=== PATIENT | male | born 1975 | race Two or more races ===

== ENCOUNTER 2025-01-24 20:17 | Emergency (ER) | payer SELFPAY ==
--- NOTE | 2025-01-24 20:20 | EKG_ITS ---
[facility] Test Date: 2025-01-24 Pat Name: ERICKA RONQUILLO Department: Room: - Gender: Male Unarmed Security Guard: : 1975 Requested By: ED Temporary Provider Order Number: [id number] Reading MD: ED Temporary Provider Measurements Intervals [place] Rate: 74 P: 52 CO: 156 QRS: 77 QRSD: 118 T: 84 QT: 352 QTc: 392 Interpretive Statements SINUS RHYTHM MODERATE INTRAVENTRICULAR CONDUCTION DELAY [110+ ms QRS DURATION] MARKED ST ELEVATION, CONSIDER ANTERIOR INJURY [MARKED ST ELEVATION W/O NORMALLY INFLECTED T-WAVE IN V2-V5] MARKED ST ELEVATION, CONSIDER INFERIOR INJURY [MARKED ST ELEVATION W/O NORMALLY INFLECTED T-WAVE IN II/aVF] ACUTE [place] No previous ECG available for comparison /store/S0/[id number]/ecg/[id number].pdf
[2025-01-24 20:24] VITALS: BP 121/83; PULSE 76; RESP 18; TEMP 36.4; O2SAT 95; BMI 34.2
--- NOTE | 2025-01-24 20:34 | EDNOTE_ITS ---
ED Chest Pain RME/HPI General Chief Complaint: Chest Pain Stated Complaint: CHEST PAIN Time Seen by Provider: 01/24/25 20:40 Arrival date/time: 01/24/25 20:17 RME / HPI RME / HPI narrative: Dr. Melendez?s Main ED Evaluation: 49yo male with a history of DM, HTN presents to the ED for a chief complaint of mid-chest pain. Patient states he's had mid chest pain for the last 1-1.5 hours. No radiation or migration. Patient descri bes his pain as pressure and burning in nature. Patient currently rates his pain an 8 out of 10 in severity. Patient denies any nausea, vomiting, shortness of breath, dizziness or any other associated symptoms. 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 Related Data Home Medications ?Medication ?Instructions ?Recorded ?Confirmed Metformin Hcl 500 mg PO BID ##0 10/08/13 lisinopril 20 mg tablet 20 mg PO QDAY ##0 10/08/13 Allergies Allergy/AdvReac Type Severity Reaction Status Date / Time NKA* Allergy Uncoded 10/08/13 02:08 Review of Systems Review of Systems Systems Reviewed: All systems reviewed, normal except as documented ED Exam Narrative Physical exam: GENERAL APPEARANCE: alert and oriented x 4, well-developed, well-nourished, no acute distress VITALS: All vitals were reviewed and the pulse ox is 95% on room air, which is normal according to my interpretation. HEENT: Normocephalic, atraumatic; pupils equal, round, reactive to light; EOMI; mucous membranes pink, moist; oropharynx clear NECK: Supple LUNGS: CTABL; no wheezes, no rales, no rhonchi HEART: Regular rate, regular rhythm; normal S1, S2; no murmurs ABDOMEN: non distended; normal BS; soft, no tenderness, no guarding, no rebound; no masses, no organomegaly, no hernia BACK: no CVA tenderness EXTREMITIES: atraumatic; no edema NEUROLOGIC: awake; alert and oriented x4; cranial nerves II-XII grossly intact; no focal sensory or motor deficits PSYCHIATRIC: appropriate mood and affect SKIN: warm, diaphoretic, normal color; no rashes Course Course Course Narrative: CXR is ordered for determining the etiology of chest pain. Quality Measures none Orders Category Date Time Status Vice President Supply Chain NOW Care 01/24/25 20:38 Completed EKG (ED ONLY) *Do not use* NOW Care 01/24/25 20:21 Completed EKG (ED Only) Stat Exams 01/24/25 20:20 Draft XR chest 1V portable Stat Exams 01/24/25 20:38 Ordered B-Type Natriuretic Peptide Stat Lab 01/24/25 20:39 Completed CBC Stat Lab 01/24/25 20:39 Completed Comprehensive Metabolic Panel Stat Lab 01/24/25 20:39 Completed Lipase Stat Lab 01/24/25 20:39 Completed Magnesium Stat Lab 01/24/25 20:39 Completed Partial Thromboplastin Time Stat Lab 01/24/25 20:39 Completed Prothrombin Time with INR Stat Lab 01/24/25 20:39 Completed Troponin I Stat Lab 01/24/25 20:39 Completed Aspirin Chew Med 01/24/25 20:37 Discontinued 162 mg PO X1 ONE Heparin Inj Med 01/24/25 20:38 Discontinued 4,000 unit IV X1 ONE Heparin/D5w 25K 250 ML Ivpb [Heparin in D5w Ivpb] Med 01/24/25 20:45 Discontinued 25,000 unit in 250 ml IV 12 units/kg/hr Morphine Inj Med 01/24/25 20:39 Discontinued 2 mg IVP X1 ONE Nitroglycerin [Nitrostat 1/150] Med 01/24/25 20:39 Discontinued 0.4 mg SL X1 ONE Ondansetron Inj [Zofran Inj] Med 01/24/25 20:39 Discontinued 4 mg IVP X1 ONE Vital Signs Vital signs: Vital Signs Temperature 97.6 F 01/24/25 20:24 Pulse Rate 76 01/24/25 20:24 Respiratory Rate 18 01/24/25 20:24 Blood Pressure 121/83 01/24/25 20:24 Pulse Oximetry (%) 95 01/24/25 20:24 Oxygen Delivery Method Room Air 01/24/25 20:24 Chest Pain MDM Narrative MDM Narrative:: Scribe Attestation: 01/24/25 Fabby Emery, am scribing for and in the presence of Dr. Melendez. At 2032, I received the patient's EKG's. I sent them to our internet consultant on- call, Dr. Betancourt. HEART alert called at 2036. Transfer process initiated. At 2037, I called Dr. Betancourt without any success and left a message. At 2057, Dr. Walker, internet consultant from [facility], accepts the patient for transfer. 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 Patient data External records reviewed:: [facility] previous records (Per chart review, patient has no previous ED visits or admissions to this facility.) Clinical information provided by:: patient Social determinants that could affect healthcare access:: none Patient has the following chronic illnesses:: DM, HTN How is presenting disease/condition affected by chronic disease/condition?: uneffected by Evaluation data The following diagnostics were reviewed and interpreted by me:: lab results and EKG tracing(s) Lab and/or radiology exams considered but not ordered:: none Interpretation Summary: The mixer pigment revealed normal sinus rhythm as interpreted by me. The mixer pigment was ordered secondary to the patient's history of chest pain and to monitor for dysrhythmia. CBC normal, BNP normal, CMP normal, Troponin normal. Other labs are pending. EKG done at 2028, sinus rhythm, rate of 74, ST elevations in lead II, lead III, avF, and V2-V6, ST depressions in avL and avR, QRS; 118, QTc: 392, according to my interpretation. Medications / Prescriptions Medications or Prescriptions considered but not ordered:: none Medication administrations:: Medication Administration History Discontinued Medications Aspirin (Aspirin 81 Mg Chew) 162 mg PO X1 ONE Stop: 01/24/25 20:38 Last Admin: 01/24/25 20:45 Dose: 162 mg Documented By: GABY Heparin Sodium (Porcine) (Heparin Sod Inj 5000 Unit/Ml Vial) 4,000 unit IV X1 ONE; Protocol Stop: 01/24/25 20:39 Heparin Sodium/Dextrose (Heparin In D5w Ivpb) 25,000 unit in 250 mls @ 13.227 mls/hr IV .[id number] SEFERINO; Protocol Stop: 02/07/25 20:44 Morphine Sulfate (Morphine Sulf Inj 10 Mg/Ml Vial) 2 mg IVP X1 ONE Stop: 01/24/25 20:40 Last Admin: 01/24/25 20:44 Dose: 2 mg Documented By: GB Nitroglycerin (Nitroglycerin 0.4 Mg Subl Btl #25) 0.4 mg SL X1 ONE Stop: 01/24/25 20:40 Last Admin: 01/24/25 20:45 Dose: 0.4 mg Documented By: GABY Ondansetron HCl (Ondansetron Inj 2 Mg/Ml Inj 2 Ml) 4 mg IVP X1 ONE Stop: 01/24/25 20:40 Last Admin: 01/24/25 20:43 Dose: 4 mg Documented By: GABY see above Consultations Consultation(s) initiated? (list below): Yes Diagnosis Chest Pain Differential Diagnosis: stable angina, unstable angina pectoris and other (STEMI, NSTEMI, ACS) Most likely diagnosis given after review of the tests above:: STEMI Admission Indicated Admission indicated?: not indicated Explain why admission is indicated or not indicated:: Patient requires a higher [id number]. Admission Request Was there a request for admission?: No Disposition Plan Disposition Plan: Transfer (to [facility]) Critical Care Time Critical Care Time Critical Care Time: Yes Total Critical Care Time (min.): 40 Attestation: The high probability of sudden, clinically significant deterioration in the patient?s condition required the highest level of my preparedness to intervene urgently. The services I provided to this patient were to treat and/or prevent clinically significant deterioration. Services included the following: chart data review, reviewing nursing notes and/or old charts, documentation time, eligibility consultant collaboration regarding findings and treatment options, medication orders and management, direct patient care, vital sign assessments and ordering, interpreting and reviewing diagnostic studies and lab tests. Aggregate critical care time includes only time during which I was engaged in work directly related to the patient?s care, as described above, whether at bedside or elsewhere in the Emergency Department. It did not include time spent performing other reported procedures or the services of residents, students, nurses or physician assistants. Discharge Plan Plan Patient Disposition: [facility] Facility Pt Being Transferred to: [facility] Service Needed for Transfer: Cardiology Discharge Disposition comment: Accepted by Dr. Walker Prescriptions/Referrals Prescriptions/Med Rec: No Action lisinopril 20 MG tablet 20 mg PO QDAY Qty: 0 Metformin Hcl 500 MG tablet 500 mg PO BID Qty: 0 Problem List Clinical Impression: ST elevation (STEMI) myocardial infarction Patient/Caregiver Discharge Instructions Print Language: Faroese Stand Alone Forms: Jerica Award Info., Patient Portal Info Letter
[2025-01-24] MEDS: ONDANSETRON INJ 2 MG/ML INJ 2 ML 4 MG IVP (20:43)
[2025-01-24] MEDS: MORPHINE SULF INJ 10 MG/ML VIAL 2 MG IVP (20:44)
[2025-01-24 20:45] VITALS: BP 129/85; PULSE 78
[2025-01-24] MEDS: NITROGLYCERIN 0.4 MG SUBL BTL #25 SL (20:45)
[2025-01-24] MEDS: ASPIRIN 81 MG CHEW 162 MG PO (20:45)
[2025-01-24 20:49] VITALS: BP 116/74; PULSE 82; RESP 13; O2SAT 99
[2025-01-24 20:50] LABS: Basophils # (Auto) 0.1 Thou/mm3 (0.0-0.2); Basophils % (Auto) 1 % (0-2.5); Eosinophils # (Auto) 0.2 Thou/mm3 (0.0-0.5); Eosinophils % (Auto) 2 % (0-10); Hematocrit 47.5 % (41.0-53.0); Hemoglobin 17.1 g/dL (13.5-16.0); Immature Granulocytes % (Auto) 1 % (0-0); Lymphocytes # (Auto) 2.8 Thou/mm3 (1.0-4.8); Lymphocytes % (Auto) 29 % (10-50); Mean Corpuscular Hemoglobin 32.6 pg (25.0-35.0); Mean Corpuscular Volume 91 fL (80-100); Monocytes # (Auto) 0.8 Thou/mm3 (0.0-0.8); Monocytes % (Auto) 9 % (0-12); Neutrophils # (Auto) 5.7 Thou/mm3 (1.8-7.7); Neutrophils % (Auto) 59 % (37-80); Nucleated Red Blood Cell % 0 /100 WBC (0); Platelet Count 295 Thou/mm3 (140-440); RDW Standard Deviation 40.2 fL (35.1-43.9); Red Blood Count 5.25 Miln/mm3 (4.50-5.90); White Blood Count 9.8 Thou/mm3 (3.8-10.6)
[2025-01-24 21:12] LABS: B-Type Natriuretic Peptide < 20 pg/mL (0-100)
[2025-01-24 21:13] LABS: Alanine Aminotransferase 19 U/L (10-49); Albumin, Serum 4.4 gm/dL (3.5-5.0); Albumin/Globulin Ratio 1.7 (1.2-2.2); Alkaline Phosphatase 129 U/L (46-116); Anion Gap 15 (7-16); BUN/Creatinine Ratio 15 Ratio (12-20); Bilirubin,Total 0.3 mg/dL (0.3-1.2); Blood Urea Nitrogen 16 mg/dL (9-23); Calcium 9.6 mg/dL (8.3-10.6); Calcium (Corrected) 9.6 mg/dL (8.5-10.1); Chloride 102 mMol/L (98-107); Creatinine (Component) 1.1 mg/dL (0.6-1.3); Estimated Creatinine Clearance 99.9 mL/min (>60); Globulin 2.6 gm/dL (2.3-3.5); Glucose 245 mg/dL (74-106); Lipase 40 U/L (12-53); Magnesium 2.2 mg/dL (1.6-2.6); Osmolality,Calculated 290 (275-295); Potassium 3.7 mMol/L (3.4-5.1); Sodium 141 mMol/L (136-145); Troponin I < 0.002 ng/mL (0.0-0.045); eGFR > 60 See Note
--- NOTE | 2025-01-24 21:13 | PC.NURSE ---
[facility] accepted pt. Report given via phone to NADEEM Phillips. Per CNL Todd, [place] [facility] is en route to pickup pt.
[2025-01-24 21:18] VITALS: BP 115/70; PULSE 88; RESP 20; O2SAT 96
[2025-01-24 21:24] LABS: Partial Thromboplastin Time 26.3 Seconds (22.0-36.0); Prothrombin Time 10.7 Seconds (9.0-12.2)
== END 2025-01-24 21:20 | disposition short-term general hospital (02) ==
LOC: SERX 21:14
PROVIDERS: Emergency Provider Emergency Medicine
DX: I21.3 ST elevation (STEMI) myocardial infarction of unspecified site (principal); I10 Essential (primary) hypertension; E11.9 Type 2 diabetes mellitus without complications; Z79.84 Long term (current) use of oral hypoglycemic drugs; Z75.1 Person awaiting admission to adequate facility elsewhere
CPT/HCPCS: 36415; 80053; 83690; 83735; 83880; 84484; 85025; 85610; 85730; 93005; 96374; 96375; 99291; J2270; J2405; A9270